=== PATIENT | female | born 1980 | race Caucasian/White ===

== ENCOUNTER 2018-01-07 08:49 | Emergency (ER) | payer OTHER ==
[~2018-01-07] VITALS: Ht 157.5 cm; Wt 81.7 kg
[~2018-01-07 08:49] MED LIST: ACETAZOLAMIDE250 M2 PO; CARISOPRODOL 3350 MG PO; DIAMOX PO; DIFLUCAN; FIORICET 50-321 EACH PO; FLEXERIL PO; GABAPENTIN100 MG PO; HYDROCODONE-AP1 EAC6 PO; HYDROCODONE-APA1 TA1 PO; IBUPROFEN 800800 M1 PO; LABETALOL 100100 MG PO; LEVSIN SL SUBLING; LISINOPRIL10 MG PO; MEDROLDOSEPACK PO; METHADONE HCL5 MG; METHADONE HCL5 MG PO; METHADOSE10 M1 PO; METHADOSE5 MG PO; MIRALAX255 GM PO; MIRENA; MOBIC7.5 MG PO; MS CONTIN 30 MG30 M1 PO; NABUMETONE 750750 M1 PO; NAPROSYN500 M1 PO; NAPROSYN500 MG PO; NEURONTIN 300M300 M2 PO; NEURONTIN 400M400 M2 PO; NORCO 5-325 TA1 EACH PO; PERCOCET 5-3251 EACH PO; PHENERGAN 25 MG25 MG PO; PREDNISONE 10 M10 M1 PO; PREDNISONE 20 M20 MG PO; RELAFEN500 MG PO; RELAFEN750 MG; RELAFEN750 MG PO; ROBAXIN 750 MG750 M1 PO; ROBAXIN500 MG PO; TIZANIDINE HCL4 MG PO; TRAMADOL; TRAMADOL 50 MG50 MG PO; TRINATE TABLET1 TAB PO; TYLENOL325 MG PO; ULTRAM 50MG TAB50 MG PO; ZANAFLEX4 M1; ZANAFLEX4 M1 PO; ZOFRAN4 MG PO
[2018-01-07] MEDS ORDERED: NORCO 5-325 TA1 EACH PO (09:36)
[2018-01-07] MEDS ORDERED: BACTRIM DS TAB1 EACH PO (09:36)
[2018-01-07 09:46] VITALS: BP 150/97
== END 2018-01-07 09:46 | disposition home or self-care (01) ==
LOC: M.ERS 08:49
DX: N76.4 Abscess of vulva (principal); G43.909 Migraine, unspecified, not intractable, without status migrainosus; M19.90 Unspecified osteoarthritis, unspecified site; M79.7 Fibromyalgia; I10 Essential (primary) hypertension; F17.210 Nicotine dependence, cigarettes, uncomplicated; Z98.890 Other specified postprocedural states; Z90.89 Acquired absence of other organs; Z90.711 Acquired absence of uterus with remaining cervical stump; Z91.040 Latex allergy status; Z88.5 Allergy status to narcotic agent; Z88.0 Allergy status to penicillin; Z88.7 Allergy status to serum and vaccine; Z88.6 Allergy status to analgesic agent

== ENCOUNTER 2018-01-15 13:12 | Emergency (ER) | payer OTHER ==
[~2018-01-15] VITALS: Ht 154.9 cm; Wt 81.7 kg
[~2018-01-15 13:12] MED LIST changes: +BACTRIM DS TAB1 EACH PO
[2018-01-15] MEDS ORDERED: ULTRAM 50MG TAB50 MG PO (14:11)
[2018-01-15 14:15] VITALS: BP 154/82
== END 2018-01-15 14:18 | disposition home or self-care (01) ==
LOC: M.ERS 13:12
DX: S00.33XA Contusion of nose, initial encounter (principal); W22.8XXA Striking against or struck by other objects, initial encounter; Y93.89 Activity, other specified; Y92.89 Other specified places as the place of occurrence of the external cause; Y99.8 Other external cause status; I10 Essential (primary) hypertension; M79.7 Fibromyalgia; M19.90 Unspecified osteoarthritis, unspecified site; G43.909 Migraine, unspecified, not intractable, without status migrainosus; I73.00 Raynaud's syndrome without gangrene; Z98.890 Other specified postprocedural states; Z90.710 Acquired absence of both cervix and uterus; F17.210 Nicotine dependence, cigarettes, uncomplicated; Z88.0 Allergy status to penicillin; Z88.5 Allergy status to narcotic agent; Z91.040 Latex allergy status

== ENCOUNTER 2018-02-11 13:09 | Emergency (ER) | payer OTHER ==
[~2018-02-11] VITALS: Ht 157.5 cm; Wt 77.1 kg
[2018-02-11] MEDS ORDERED: TRAZODONE HCL50 MG PO (13:31)
[2018-02-11] MEDS ORDERED: PRINIVIL20 MG PO (13:31)
[2018-02-11] MEDS ORDERED: TRAMADOL 50 MG50 MG PO (14:23)
[2018-02-11 14:39] VITALS: BP 169/111
== END 2018-02-11 14:40 | disposition home or self-care (01) ==
LOC: M.ERS 13:09
DX: S46.811A Strain of other muscles, fascia and tendons at shoulder and upper arm level, right arm, initial encounter (principal); G43.909 Migraine, unspecified, not intractable, without status migrainosus; M19.90 Unspecified osteoarthritis, unspecified site; M79.7 Fibromyalgia; I10 Essential (primary) hypertension; I73.00 Raynaud's syndrome without gangrene; Z90.711 Acquired absence of uterus with remaining cervical stump; F17.210 Nicotine dependence, cigarettes, uncomplicated; Z91.040 Latex allergy status; Z88.6 Allergy status to analgesic agent; Z88.0 Allergy status to penicillin; Z88.7 Allergy status to serum and vaccine; W10.8XXA Fall (on) (from) other stairs and steps, initial encounter; Y93.89 Activity, other specified; Y92.89 Other specified places as the place of occurrence of the external cause; Y99.8 Other external cause status

== ENCOUNTER 2018-02-25 12:56 | Emergency (ER) | payer OTHER ==
[~2018-02-25] VITALS: Ht 154.9 cm; Wt 77.1 kg
[~2018-02-25 12:56] MED LIST changes: +PRINIVIL20 MG PO; +TRAZODONE HCL50 MG PO
[2018-02-25] MEDS ORDERED: ZANAFLEX4 MG PO (13:04)
[2018-02-25] MEDS ORDERED: NORFLEX100 MG PO (13:50)
[2018-02-25] MEDS ORDERED: ULTRAM 50MG TAB50 MG PO (13:50)
[2018-02-25 13:58] VITALS: BP 164/108
== END 2018-02-25 13:59 | disposition home or self-care (01) ==
LOC: M.ERS 12:56
DX: S13.8XXA Sprain of joints and ligaments of other parts of neck, initial encounter (principal); G43.909 Migraine, unspecified, not intractable, without status migrainosus; M19.90 Unspecified osteoarthritis, unspecified site; I10 Essential (primary) hypertension; M79.7 Fibromyalgia; Z90.711 Acquired absence of uterus with remaining cervical stump; W10.8XXA Fall (on) (from) other stairs and steps, initial encounter; Y93.89 Activity, other specified; Y92.098 Other place in other non-institutional residence as the place of occurrence of the external cause; Y99.8 Other external cause status

== ENCOUNTER 2018-04-11 09:26 | Emergency (ER) | payer OTHER ==
[~2018-04-11] VITALS: Ht 154.9 cm; Wt 77.1 kg
[~2018-04-11 09:26] MED LIST changes: +NORFLEX100 MG PO; +ZANAFLEX4 MG PO
[2018-04-11 09:31] VITALS: BP 170/114
[2018-04-11] MEDS ORDERED: NAPROSYN500 MG PO (10:11)
== END 2018-04-11 10:19 | disposition home or self-care (01) ==
LOC: M.ERS 09:26
DX: M25.551 Pain in right hip (principal); I10 Essential (primary) hypertension; G43.909 Migraine, unspecified, not intractable, without status migrainosus; M19.90 Unspecified osteoarthritis, unspecified site; M79.7 Fibromyalgia; F17.210 Nicotine dependence, cigarettes, uncomplicated; Z88.0 Allergy status to penicillin; Z88.5 Allergy status to narcotic agent

== ENCOUNTER 2018-04-26 14:22 | Emergency (ER) | payer OTHER ==
[~2018-04-26] VITALS: Ht 154.9 cm; Wt 77.1 kg
[2018-04-26] MEDS ORDERED: IBUPROFEN 800800 M1 PO (14:38)
[2018-04-26] MEDS ORDERED: TYLENOL EXTRA500 MG PO (14:39)
[2018-04-26] MEDS ORDERED: NEURONTIN 400400 M1 PO (14:39)
[2018-04-26] MEDS ORDERED: KEFLEX500 M1 PO (14:43)
[2018-04-26] MEDS ORDERED: TRAMADOL 50 MG50 MG PO (14:43)
[2018-04-26 14:56] VITALS: BP 186/110
== END 2018-04-26 14:56 | disposition home or self-care (01) ==
LOC: M.ERS 14:22
DX: T23.021A Burn of unspecified degree of single right finger (nail) except thumb, initial encounter (principal); X08.8XXA Exposure to other specified smoke, fire and flames, initial encounter; Y93.89 Activity, other specified; Y92.89 Other specified places as the place of occurrence of the external cause; Y99.8 Other external cause status

== ENCOUNTER 2018-06-21 19:45 | Emergency (ER) | payer OTHER ==
[~2018-06-21] VITALS: Ht 154.9 cm; Wt 77.1 kg
[~2018-06-21 19:45] MED LIST changes: +KEFLEX500 M1 PO; +NEURONTIN 400400 M1 PO; +TYLENOL EXTRA500 MG PO
[2018-06-21 21:18] VITALS: BP 195/99
== END 2018-06-21 21:18 | disposition home or self-care (01) ==
LOC: M.ERS 19:45
DX: S80.02XA Contusion of left knee, initial encounter (principal); W22.09XA Striking against other stationary object, initial encounter; Y93.89 Activity, other specified; Y92.89 Other specified places as the place of occurrence of the external cause; Y99.8 Other external cause status; I10 Essential (primary) hypertension; G43.909 Migraine, unspecified, not intractable, without status migrainosus

== ENCOUNTER 2018-10-09 19:43 | Emergency (ER) | payer OTHER ==
[~2018-10-09] VITALS: Ht 154.9 cm; Wt 72.6 kg
[2018-10-09] MEDS ORDERED: IBUPROFEN 800800 M1 PO (20:17)
[2018-10-09] MEDS ORDERED: KEFLEX500 M1 PO (20:17)
[2018-10-09 20:44] VITALS: BP 216/123
== END 2018-10-09 20:45 | disposition home or self-care (01) ==
LOC: M.ERS 19:43
DX: T23.001A Burn of unspecified degree of right hand, unspecified site, initial encounter (principal); G43.909 Migraine, unspecified, not intractable, without status migrainosus; M19.90 Unspecified osteoarthritis, unspecified site; M79.7 Fibromyalgia; I10 Essential (primary) hypertension; Z90.710 Acquired absence of both cervix and uterus; F17.210 Nicotine dependence, cigarettes, uncomplicated; Z88.0 Allergy status to penicillin; Z88.5 Allergy status to narcotic agent; Z88.8 Allergy status to other drugs, medicaments and biological substances; Z91.040 Latex allergy status; X58.XXXA Exposure to other specified factors, initial encounter; Y93.G2 Activity, grilling and smoking food; Y92.89 Other specified places as the place of occurrence of the external cause; Y99.8 Other external cause status

== ENCOUNTER 2019-01-03 10:59 | Emergency (ER) | payer OTHER ==
[~2019-01-03] VITALS: Ht 154.9 cm; Wt 77.1 kg
[2019-01-03] MEDS ORDERED: NAPROSYN500 MG PO (11:10)
[2019-01-03] MEDS ORDERED: NORCO 5-325 TA1 EAC1 PO (11:51)
[2019-01-03 12:01] VITALS: BP 207/122
== END 2019-01-03 12:04 | disposition home or self-care (01) ==
LOC: M.ERS 10:59
DX: M25.551 Pain in right hip (principal); N80.9 Endometriosis, unspecified; G43.909 Migraine, unspecified, not intractable, without status migrainosus; M79.7 Fibromyalgia; M19.90 Unspecified osteoarthritis, unspecified site; F17.210 Nicotine dependence, cigarettes, uncomplicated; Z91.040 Latex allergy status; Z88.0 Allergy status to penicillin; Z88.5 Allergy status to narcotic agent; Z88.7 Allergy status to serum and vaccine; Z88.8 Allergy status to other drugs, medicaments and biological substances; Z88.6 Allergy status to analgesic agent; Z90.711 Acquired absence of uterus with remaining cervical stump; Z98.890 Other specified postprocedural states

== ENCOUNTER 2019-01-07 23:14 | Inpatient (IN) | payer OTHER ==
[~2019-01-07] VITALS: Ht 154.9 cm; Wt 72.7 kg
[~2019-01-07 23:14] MED LIST changes: +NORCO 5-325 TA1 EAC1 PO
[2019-01-07 23:26] VITALS: BP 233/140
[2019-01-07 23:42] LABS: URINE BILIRUBIN NEGATIVE (Negative); URINE BLOOD TRACE (Negative); URINE CLARITY CLEAR; URINE COLOR YELLOW; URINE GLUCOSE-RANDOM NEGATIVE (Negative); URINE KETONES NEGATIVE (Negative); URINE LEUKOCYTES-REFLEX NEGATIVE (Negative); URINE NITRITE-REFLEX NEGATIVE (Negative); URINE PROTEIN 3+ (Negative); URINE SPECIFIC GRAVITY 1.025 (1.005-1.030); URINE UROBILINOGEN 0.2 E.U./dl (0.2-1.0)
[2019-01-07 23:46] LABS: BACTERIA-REFLEX >30 Many /HPF (None Seen); MUCUS >6 Heavy strn/LPF (None Seen); SQUAMOUS 4-10 Moderate /LPF (0-3); URINE RBC 3-10 Few /HPF (0-2); URINE WBC-REFLEX 6-15 Few /HPF (0-5); WBC CLUMPS Few (None Seen)
[2019-01-07 23:47] LABS: COARSE GRANULAR CASTS 0-3 Few /LPF (None Seen); CRYSTALS None Seen /LPF (None Seen); FINE GRANULAR CASTS 0-3 Few /LPF (None Seen); HYALINE CASTS 0-3 Few /LPF (None Seen)
[2019-01-07 23:50] LABS: ABSOLUTE BASOPHILS 0.1 thou/uL (0.0-0.2); ABSOLUTE EOSINOPHILS 0.2 thou/uL (0.0-0.7); ABSOLUTE LYMPHOCYTES 2.4 thou/uL (0.8-5.3); ABSOLUTE MONOCYTES 0.7 thou/uL (0.0-1.2); ABSOLUTE NEUTROPHILS 7.5 thou/uL (1.6-8.1); BASOPHILS 0.5 %; EOSINOPHILS 1.5 %; HEMATOCRIT 46.5 % (37.0-47.0); LYMPHOCYTES 22.1 %; MCHC 34.4 g/dL (28.0-37.0); MCV 95.9 fL (80.0-100.0); MONOCYTES 6.4 %; MPV 7.5 fl. (7.2-11.1); NUCLEATED RBCS 0 /100WBC; PLATELET COUNT* 287 thou/uL (150-400); POLYS 69.5 %; RBC 4.85 mil/uL (4.20-5.00); WBC 10.7 thou/uL (4.0-11.0)
[2019-01-07 23:56] LABS: ANION GAP 11 mmol/L (7-16); BUN 14 mg/dL (7-18); CALCIUM 9.2 mg/dL (8.5-10.1); CHLORIDE 98 mmol/L (98-107); CO2 29 mmol/L (21-32); CREATININE 1.2 mg/dL (0.6-1.3); GLUCOSE 92 mg/dL (70-99); SODIUM 138 mmol/L (136-145)
[2019-01-07 23:58] LABS: POTASSIUM 2.6 mmol/L (3.5-5.1)
[2019-01-08 00:11] LABS: ALBUMIN 4.4 g/dL (3.4-5.0); ALKALINE PHOSPHATASE 121 U/L (46-116); NT-PRO BRAIN NAT PEPTIDE 2009 pg/mL (<300); SGOT 23 U/L (15-37); SGPT 28 U/L (30-65); TOTAL BILIRUBIN 0.4 mg/dL (<0.1-1.0); TOTAL PROTEIN 8.9 g/dL (6.4-8.2); TROPONIN-I LEVEL <0.06 ng/mL (<0.06)
[2019-01-08 02:35] VITALS: BP 210/96
[2019-01-08 03:00] VITALS: BP 163/96
--- NOTE | 2019-01-08 05:47 | NUR ---
RECEIVED PT FROM ED PER CART ACCOMPANIED BY BRITNEY LEMOS, PT IS AWAKE AND ORIENTED X4. WARDROBE SPECIALIST PLACED-TRACING SR. ADMISSION ASSESSMENT AND NIH DONE CHARTED. ELECTROLYTE (K+) REPLACEMENT IN PROGRESS. PT ADVISED ON DIET AND THE USE OF CALL LIGHT. PT PROVIDED ORIENTATION ON ON ROOM SET UP. HIGH FALL PRECAUTIONS IN PLACE. HOURLY ROUNDING DONE FOR PT SAFETY.
[2019-01-08 07:50] VITALS: BP 160/88
--- NOTE | 2019-01-08 10:20 | NUR ---
MET WITH PT TO DISCUSS HOME SITUATION/DC PLANNING. PT LIVES WITH SPOUSE AND CHILDREN. SHE WORKS AT [employer]. PT IS INDEPENDENT, USES NO EQUIPMENT. IS UNINSURED AND STATES FOLLOWS WITH A DR AT [facility], COULDN'T REMEMBER HER NAME. PT ID'D NO DC NEEDS AT THIS TIME. WILL FOLLOW. COMMUNITY RESOURCES GIVEN.
--- NOTE | 2019-01-08 11:11 | EKG ---
[place] [address] ELECTROCARDIOGRAM REPORT Name: ADELA MCCLENDON Room: [place] [address] ADM IN [facility].#: [id number] Admission: 01/08/19 Attend Phys: Roma Enciso MD Discharge: Date of : 82 Report #: [id number] THIS REPORT FOR: //name// [facility] ED Test Date: 2019-01-07 Test Time: 23:36:54 Pat Name: ADELA MCCLENDON Department: Room: [facility] Gender: F Equipment Validation Specialist: barry : 1980 Requested By: Naida Foreman Order Number: [id number] MD: Otto Vaughn Measurements Intervals [place] Rate: 78 P: 63 NV: 142 QRS: 11 QRSD: 84 T: 43 QT: 400 QTc: 456 Interpretive Statements Sinus rhythm LAE, consider biatrial enlargement Probable left ventricular hypertrophy ST elev, probable normal early repol pattern Baseline wander in lead(s) V2 No previous ECG available for comparison Electronically Signed On 01-08-2019 11:11:09 CDT by Otto Vaughn [email or web address] <ELECTRONICALLY SIGNED> By: Otto Vaughn MD, FACC 01/08/19 1111 [id number] Otto Vaughn MD, [facility] /EPI
--- NOTE | 2019-01-08 16:33 | NUR ---
ASSESSMENT COMPLETE. MRI RESULTED AND READ BACK TO NEUROLOGIST AT 1620. PROVIDER STATED HE WILL PUT IN ORDERS. PATIENT PASSED BEDSIDE SWOLLOW WITH RN AT 1630. CARB CONTROLLED DIET ORDER. SEE NIH ASSESSMENT. PT REPORTS HEADACHE, VSS, NSR ON TELE MONITOR. PT IS FALL RISK, BED ALARM ON.
[2019-01-08 17:51] VITALS: BP 120/69
[2019-01-08 18:14] VITALS: BP 139/95
[2019-01-08 20:00] VITALS: BP 147/89
--- NOTE | 2019-01-08 20:00 | NUR ---
RECEIVED REPORT AND ASSUMED CARE OF PT, ASSESSMENT COMPLETED. PT C/O BRADFORD CASTRO. NIH COMPLETED. WITH SCORE OF 7 DUE TO LT ARM AND LEG WEAKNESS. TELEMETRY ON SHOWING SR. WILL CONT TO MONITOR AND ASSIST NEEDED.
[2019-01-09] VITALS: BP 152/80
[2019-01-09 04:00] VITALS: BP 149/83
[2019-01-09 04:45] LABS: ALKALINE PHOSPHATASE 92 U/L (46-116); ANION GAP 7 mmol/L (7-16); BUN 20 mg/dL (7-18); CALCIUM 8.7 mg/dL (8.5-10.1); CHLORIDE 108 mmol/L (98-107); CHOLESTEROL 286 mg/dL (<200); CO2 27 mmol/L (21-32); CREATININE 1.1 mg/dL (0.6-1.3); GLUCOSE 83 mg/dL (70-99); HDL CHOLESTEROL 27 mg/dL (>40); LDL CHOLESTEROL 232 mg/dL (<100); POTASSIUM 4.2 mmol/L (3.5-5.1); SGOT 18 U/L (15-37); SGPT 23 U/L (30-65); SODIUM 142 mmol/L (136-145); TC:HDL 10.6 Ratio (Not establshd); TOTAL BILIRUBIN 0.2 mg/dL (<0.1-1.0); TOTAL PROTEIN 6.6 g/dL (6.4-8.2); TRIGLYCERIDE 137 mg/dL (<150); VLDL 27 mg/dL (<40)
[2019-01-09 04:54] LABS: SERUM ASSESSMENT Clear
--- NOTE | 2019-01-09 05:50 | NUR ---
SLEPT ALL NIGHT. ASSISTED TO BR AND BACK WITH WALKER. PT DRAGGING LT LEG, TOES POINTING DOWNWARD. C/O PAIN INTO LT CALF, EXPLAINED PROB DUE TO USING DIFFERENT MUSCLES THAT SHE WAS NOT USE TO. CONTACTED AND ORDER RECEIVED FOR PAIN MED BUT PT RETURNED TO SLEEP BEFORE COULD GIVE. ASSESSMENT UNCHANGED. TELEMETRY CONT TO SHOW SR. HS GOALS OF REST AND SAFETY ACHIEVED. HOURLY ROUNDING OBSERVED.
--- NOTE | 2019-01-09 07:25 | NUR ---
CHANGE OF SHIFT, BEDSIDE REPORT GIVEN PATIENT SEEN AT BEDSIDE, IN BED WATCHING TV ASSUMED PATIENT CARE
[2019-01-09 08:00] VITALS: BP 160/91
[2019-01-09 12:00] VITALS: BP 121/74
[2019-01-09 15:57] VITALS: BP 160/94
[2019-01-09 19:40] VITALS: BP 142/90
[2019-01-10 00:23] VITALS: BP 149/90
[2019-01-10 04:08] VITALS: BP 121/64
--- NOTE | 2019-01-10 05:37 | NUR ---
PT SLEPT ON AND OFF THIS SHIFT. ASSESSMENT DOCUMENTED. MEDS GIVEN PER E-SEP. IV PATENT. PAIN MEDS GIVEN PER E-MAR WITH MINIMAL RELIEF. PT SHOWERED TO ATTEMPT TO RELIEF PAIN. SWELLING NOTED IN LLE. DR NOTIFIED, ORDERS RECIEVED FOR LOWER EXTREMETY ULTRASOUND. NIH DOCUMENTED. TELE MONITOR READING SR. WILL CONTINUE WITH PLAN OF CARE.
--- NOTE | 2019-01-10 07:15 | NUR ---
CHANGE OF SHIFT, BEDSIDE REPORT GIVEN PATIENT SEEN AT BEDSIDE, IN BED RESTING ASSUMED PATIENT CARE
[2019-01-10 07:30] VITALS: BP 155/88
[2019-01-10 12:09] VITALS: BP 161/82
[2019-01-10 16:30] VITALS: BP 147/67
[2019-01-10 20:45] VITALS: BP 157/95
[2019-01-11] VITALS: BP 164/92
[2019-01-11 04:00] VITALS: BP 146/88
--- NOTE | 2019-01-11 06:55 | NUR ---
NO ACUTE CHANGES OVERNIGHT. PATIENT SLEPT OFF AND ON. ASSESSMENT CHARTED. MEDS GIVEN PER EMAR. PATIENT REFUSING ORAL MEDICATION STATING "IT WILL NOT DO ANYTHING. I TAKE 3,000 MG OF IBUPROFEN AT HOME." EDUCATION GIVEN. WILL CONTINUE TO MONITOR PLAN OF CARE.
--- NOTE | 2019-01-11 09:00 | NUR ---
ASSUMED CARE AFTER REPORT. A&OX4. ABLE TO COMMUNICATE NEEDS TO STAFF. WOODWORKING MACHINE SETTER IN PLACE, SR. O2 SATS 97% RA. PATIENT USING FACIAL GRIMACE AND POSITION TO INDICATE PAIN, STATES PAIN LEVEL 9/10 PER NUMERIC PAIN SCALE. REVIEWED PLAN FOR PAIN MANAGEMENT. PRN PAIN MED GIVEN PER MAR. USING WALKER TO TRANSFER AND AMBULATE WITH SUPERVISION BY STAFF. APPROPRIATE USE OF CALL LIGHT. HOURLY ROUNDING FOR SAFETY AND PATIENT NEEDS.
--- NOTE | 2019-01-11 11:15 | NUR ---
COMMAND AND CONTROL SPECIALIST: MET WITH PATIENT AND DISCUSSED STROKE PROGRAM, RISK FACTORS, SECONDARY PREVENTION. WILL CONTINUE TO FOLLOW, PT CONCERNED REGARDING PAIN IN LLE.
[2019-01-11 11:30] VITALS: BP 130/91
--- NOTE | 2019-01-11 11:43 | NUR ---
CONTINUE TO FOLLOW, PT DX WITH STROKE, HAS REHAB CONSULT NOW. MET WITH PT AGAIN, SHE NOW STATES SHE LIVES ALONE IN [place] BUT PLANS TO GO TO [place]. CONFIRMED SHE DOESN'T HAVE INSURANCE. HAVE AS[facility]ED [facility] TO SEE PT TO SCREEN FOR ELIGIBILITY.
[2019-01-11 11:55] VITALS: BP 160/97
--- NOTE | 2019-01-11 15:38 | 2DMMODE ---
[place] [address] 2 D/M-MODE ECHOCARDIOGRAM Name: HAKANADELAKEY YUENEE Room: [place] [address] ADM IN [facility]#: [id number] Admission: 01/08/19 Attend Phys: Roma Enciso MD Discharge: Date of : 82 Date of Service: 01/11/19 1537 Report #: [id number] THIS REPORT FOR: //name// APPROVED REPORT Study performed: 01/11/2019 13:35:06 EXAM: Comprehensive 2D, Doppler, and color-flow Echocardiogram Patient Location: In-Patient Room #: [facility] Status: routine BSA: 1.73 HR: 68 bpm BP: 146/88 mmHg Rhythm: NSR Other Information Study Quality: Excellent Indications CVA/TIA Echo Enhancing Agent Indication: Rule out Shunt Agent(s) / Amount(s) Used: Agitated Saline 10 cc 2D Dimensions IVSd: 11.44 (7-11mm) LVOT Diam: 20.05 (18-24mm) LVDd: 45.95 mm PWd: 9.88 (7-11mm) Ascending Ao: 32.56 (22-36mm) LVDs: 30.01 (25-40mm) Aortic Root: 29.62 mm Volumes Left Atrial Volume (Systole) LA ESV Index: 32.90 mL/m2 Aortic Valve AoV Peak Sen.: 1.61 m/s AO Peak Gr.: 10.37 mmHg LVOT Max P.38 mmHg AO Mean Gr.: 5.85 mmHg LVOT Mean P.28 mmHg LVOT Max V: 1.05 m/s AO V2 VTI: 30.06 cm LVOT Mean V: 0.70 m/s LILIANA (VTI): 2.16 cm2 LVOT V1 VTI: 20.55 [place] [address] 2 D/M-MODE ECHOCARDIOGRAM Name: ADELA MCCLENDON Room: [place] [address] ADM IN ..#: [id number] Admission: 01/08/19 Attend Phys: Roma Enciso MD Discharge: Date of : 82 Date of Service: 01/11/19 1537 Report #: [id number] Mitral Valve E/A Ratio: 1.13 MV Decel. Time: 223.77 ms MV E Max Sen.: 0.94 m/s MV PHT: 64.89 ms MVA (PHT): 3.39 cm2 TDI E/Lateral E': 8.55 E/Medial E': 9.40 Medial E' Sen.: 0.10 m/s Lateral E' Sen.: 0.11 m/s Pulmonary Valve PV Peak Sen.: 1.02 m/s PV Peak Gr.: 4.17 mmHg Left Ventricle The left ventricle is normal size. There is normal LV segmental wall motion. There is normal left ventricular wall thickness. Left ventricular systolic function is normal. The left ventricular ejection fraction is within the normal range. LVEF is 60-65%. The left ventricular diastolic function is normal. Right Ventricle The right ventricle is normal size. The right ventricular systolic function is normal. Atria Left atrium is mildly dilated. Interatrial septum is intact without evidence of ASD or PFO. The right atrium size is normal. Aortic Valve The aortic valve is normal in structure. No aortic regurgitation is present. There is no aortic valvular stenosis. Mitral Valve The mitral valve is normal in structure. Trace mitral regurgitation. No evidence of mitral valve stenosis. Tricuspid Valve The tricuspid valve is normal in structure. There is no tricuspid valve regurgitation noted. Pulmonic Valve The pulmonary valve is normal in structure. There is no pulmonic [place] [address] 2 D/M-MODE ECHOCARDIOGRAM Name: ADELA MCCLENDON ONEIL Room: [address] IN ..#: [id number] Admission: 01/08/19 Attend Phys: Roma Enciso MD Discharge: Date of : 82 Date of Service: 01/11/19 1537 Report #: [id number] Great Vessels The aortic root is normal in size. IVC is normal in size and collapses >50% with inspiration. Pericardium There is no pericardial effusion. <Conclusion> LVEF is 60-65%. Left atrium is mildly dilated. Interatrial septum is intact without evidence of ASD or PFO. <ELECTRONICALLY SIGNED> By: Otto Vaughn MD, LOCATED [facility]IN [facility] 01/11/19 1537 1537 1537 Otto Vaughn MD, FAC /INF
[2019-01-11 15:48] VITALS: BP 163/109
--- NOTE | 2019-01-11 16:45 | NUR ---
I have reviewed the documentation by GABRIELE JARRETT from TODAY to 01/11/19 and I concur with it. KATYA BLISS
--- NOTE | 2019-01-11 18:30 | NUR ---
PATIENT SEEMS RELAXED AFTER FAMILY VISITED. PATIENT STATES "MY BROUGHT MY KIDS TO SEE ME." PATIENT STATES HER PAIN LEVEL IS 7/10 PER NUMERIC PAIN SCALE. THORACIC AND LUMBAR MRI COMPLETED. ECHO COMPLETE. PATIENT ROMÁN WELL. DISCUSSED PAIN MANAGEMENT WITH PATIENT WHO IS MORE RELAXED WHEN DISCUSSING THIS TOPIC NOW. PATIENT TAKING SCHEDULED ANALGESICS ORDERED. HOURLY ROUNDING COMPLETED FOR SAFETY AND PATIENT NEEDS.
[2019-01-11 20:00] VITALS: BP 179/86
[2019-01-12] VITALS: BP 187/90
[2019-01-12 04:00] VITALS: BP 142/78
[2019-01-12 07:53] VITALS: BP 112/65
--- NOTE | 2019-01-12 08:11 | NUR ---
PT WAS SCREENED BY RosalindARC, NOT ELIGIBLE FOR ANY PROGRAMS SO IS NOT MEDICAID PENDING
--- NOTE | 2019-01-12 08:45 | NUR ---
ASSUMED CARE AFTER REPORT. [employer], SLEEPING AT FIRST ENCOUNTER. ABLE TO COMMUNICATE NEEDS TO STAFF. 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 O2 SATS 97% RA. UP WITH WALKER AND ASSIST OF ONE. PRN TRAMADOL GIVEN FOR PAIN. C/O PAIN IN L LEG AND BACK OF NECK. CALL LIGHT WITHIN REACH. HOURLY ROUNDING FOR SAFETY AND PATIENT NEEDS.
[2019-01-12 12:14] VITALS: BP 170/71
[2019-01-12 15:40] VITALS: BP 165/87
[2019-01-12 19:28] LABS: URINE BILIRUBIN NEGATIVE (Negative); URINE BLOOD NEGATIVE (Negative); URINE CLARITY CLEAR; URINE COLOR YELLOW; URINE GLUCOSE-RANDOM NEGATIVE (Negative); URINE KETONES NEGATIVE (Negative); URINE LEUKOCYTES-REFLEX NEGATIVE (Negative); URINE NITRITE-REFLEX NEGATIVE (Negative); URINE PROTEIN NEGATIVE (Negative); URINE SPECIFIC GRAVITY <= 1.005 (1.005-1.030); URINE UROBILINOGEN 0.2 E.U./dl (0.2-1.0)
[2019-01-12 19:37] LABS: AMP/METHAMP Negative (Negative); BARBITURATES Negative (Negative); BENZODIAZEPINES Negative (Negative); COCAINE Negative (Negative); METHADONE Negative (Negative); OPIATES Negative (Negative); PCP Negative (Negative); THC Negative (Negative)
[2019-01-12 20:00] VITALS: BP 158/103
[2019-01-13] VITALS (7 sets, daily range): BP systolic 134–169; BP diastolic 79–103
--- NOTE | 2019-01-13 07:36 | NUR ---
PT REQUESTED PRN PAIN MEDICINE FOR LEFT LEG X2. REPORTED MINIMAL EFFECTIVENESS BUT WAS ABLE TO FALL ASLEEP AFTER BEDTIME DOSE AND FALL BACK ASLEEP AFTER AM DOSE. NO OTHER CONCERNS REPORTED. CALL LIGHT IN REACH. HOURLY ROUNDING FOR SAFETY.
[2019-01-13] MEDS ORDERED: ASPIRIN EC81 M1 PO (12:01)
[2019-01-13] MEDS ORDERED: VERAPAMIL E.R240 M1 PO (12:03)
[2019-01-13] MEDS ORDERED: LIPITOR 20 MG T20 M1 PO (12:04)
[2019-01-13] MEDS ORDERED: TRAMADOL 50 MG50 MG PO (12:05)
[2019-01-13] MEDS ORDERED: PLAVIX 75 MG TA75 M1 PO (12:05)
--- NOTE | 2019-01-13 13:27 | NUR ---
SPOKE WITH CHAD/[facility], THEY ARE WAITING ON A PT TO DISCHARGE AND THEN CAN ACCEPT PT. NOT SURE OF TIMING, SHE WILL CALL CM BACK UPDATED PT AND NURSE
--- NOTE | 2019-01-13 14:55 | NUR ---
PT A/O, NIH 2. TELE TRACKING SR AND ALL VSS ON ROOM AIR. DENIES CP, SOA. DOES HAVE LEFT LEG PAIN AND HEADACHE-MEDICATED PER EMAR. EDUCATED ON SAFETY AND PLAN OF CARE. PLEASE SEE ASSESSMENT FOR ADDITIONAL INFORMATION. WILL CONT TO MONITOR
[2019-01-14] VITALS: BP 147/76
[2019-01-14 04:00] VITALS: BP 132/84
[2019-01-14 08:00] VITALS: BP 125/87
[2019-01-14 08:43] VITALS: BP 125/87
--- NOTE | 2019-01-14 10:35 | NUR ---
PAN HELPER INFORMED THAT THE PATIENT HAS BEEN DISCHARGED AND ACCEPTED TO [facility]. D/C SPIKE MACHINE FEEDER SPOKE TO THE PATIENT TO DISCUSS DISCHARGE PLANNING AND TRANSPORT, AND THE PATIENT INFORMS THAT SHE NEEDS TO HAVE HER FAMILY TRANSPORT HER SO THAT SHE MAY 'P[place] DEALER HER PAYCHECK'. D/C SPIKE MACHINE FEEDER INFORMED THE PHYSICIAN AND CHAD WITH ADMISSIONS AT [facility] OF THIS AND BOTH ARE IN AGREEMENT. D/C SPIKE MACHINE FEEDER INFORMED THE PATIENT OF THE IMPORTANCE OF HER NOT MAKING ANY OTHER STOPS WHATSOEVER AND THAT SHE IS NOT ALLOWED TO EXIT THE VEHICLE FOR ANY REASON, AND MUST GO DIRECTLY TO [facility] AFTER SHE GETS HER PAYCHECK. PATIENT IN AGREEMENT AND STATES THAT SHE FULLY UNDERSTANDS. PATIENT INFORMS THAT HER FAMILY WILL ARRIVE AT THE [facility] TO PROVIDE TRANSPORT BETWEEN 1100 AND 1130. D/C SPIKE MACHINE FEEDER INFORMED CHAD OF THIS AND SHE INFORMS THAT SHE EXPECTS TO SEE THE PATIENT AT THE FACILITY BETWEEN 1230 AND 1300. CHART COPIED AND EMTALA FORM COMPLETED. D/C SPIKE MACHINE FEEDER INFORMED THE RN IN-CHARGE OF THE PATIENT OF THE PATIENT'S TIME OF TRANSPORT AND WHERE TO CALL REPORT. CM WILL REMAIN AVAILABLE TO ASSIST AND FOLLOW NEEDED. [facility] PHONE: [phone] FAX: [phone]
--- NOTE | 2019-01-14 11:10 | NUR ---
DISCHARGE NOTE - [facility] REPORT CALLED [phone] AND SPOKE WITH CANELO KEMP. NO QUESTIONS. ALL BELONGINGS SENT WITH PT. CHART COPIED AND SENT WITH PT. IV REMOVED.
== END 2019-01-14 11:10 | DRG 65 ==
LOC: M.ERS 23:14 → M.TBA-ER 01-08 01:35 → M.2W 01-08 01:35
PROVIDERS: Emergency Medicine; Internal Medicine; Psychiatry & Neurology Neuromuscular Medicine; ADMIT Family Medicine
DX: I63.9 Cerebral infarction, unspecified (principal); I16.9 Hypertensive crisis, unspecified; M19.90 Unspecified osteoarthritis, unspecified site; F17.210 Nicotine dependence, cigarettes, uncomplicated; I16.0 Hypertensive urgency; E87.6 Hypokalemia; E78.5 Hyperlipidemia, unspecified; G43.909 Migraine, unspecified, not intractable, without status migrainosus; I10 Essential (primary) hypertension; Z90.710 Acquired absence of both cervix and uterus; Z88.8 Allergy status to other drugs, medicaments and biological substances; Z88.6 Allergy status to analgesic agent; Z91.040 Latex allergy status; Z83.3 Family history of diabetes mellitus; Z71.6 Tobacco abuse counseling; Z79.899 Other long term (current) drug therapy

== ENCOUNTER 2019-03-01 21:05 | Emergency (ER) | payer OTHER ==
[~2019-03-01] VITALS: Ht 154.9 cm; Wt 72.6 kg
[~2019-03-01 21:05] MED LIST changes: +ASPIRIN EC81 M1 PO; +LIPITOR 20 MG T20 M1 PO; +PLAVIX 75 MG TA75 M1 PO; +VERAPAMIL E.R240 M1 PO
[2019-03-01] MEDS ORDERED: TRAMADOL 50 MG50 MG PO (21:42)
[2019-03-01 22:19] VITALS: BP 114/83
== END 2019-03-01 22:21 | disposition home or self-care (01) ==
LOC: M.ERS 21:05
DX: M79.605 Pain in left leg (principal); I10 Essential (primary) hypertension; M79.7 Fibromyalgia; G43.909 Migraine, unspecified, not intractable, without status migrainosus; N80.9 Endometriosis, unspecified; M19.90 Unspecified osteoarthritis, unspecified site; F17.210 Nicotine dependence, cigarettes, uncomplicated; Z91.040 Latex allergy status; Z88.5 Allergy status to narcotic agent; Z88.0 Allergy status to penicillin; Z88.7 Allergy status to serum and vaccine; Z88.6 Allergy status to analgesic agent; Z88.8 Allergy status to other drugs, medicaments and biological substances; Z98.890 Other specified postprocedural states; Z86.73 Personal history of transient ischemic attack (TIA), and cerebral infarction without residual deficits; Z90.711 Acquired absence of uterus with remaining cervical stump

== ENCOUNTER 2019-04-21 11:21 | Emergency (ER) | payer OTHER, MEDICAID ==
[~2019-04-21] VITALS: Ht 154.9 cm; Wt 77.1 kg
[2019-04-21] MEDS ORDERED: CIPROFLOXIN HC2.5 M1 OPHTHALMIC (11:56)
[2019-04-21 12:01] VITALS: BP 157/96
== END 2019-04-21 12:00 | disposition home or self-care (01) ==
LOC: M.ERS 11:21
DX: H10.9 Unspecified conjunctivitis (principal); M79.7 Fibromyalgia; N80.9 Endometriosis, unspecified; G43.909 Migraine, unspecified, not intractable, without status migrainosus; M19.90 Unspecified osteoarthritis, unspecified site; F17.210 Nicotine dependence, cigarettes, uncomplicated; Z91.040 Latex allergy status; Z88.5 Allergy status to narcotic agent; Z88.0 Allergy status to penicillin; Z88.7 Allergy status to serum and vaccine; Z88.8 Allergy status to other drugs, medicaments and biological substances; Z98.890 Other specified postprocedural states; Z90.711 Acquired absence of uterus with remaining cervical stump

== ENCOUNTER 2019-05-13 16:53 | Emergency (ER) | payer OTHER, MEDICAID ==
[~2019-05-13] VITALS: Ht 154.9 cm; Wt 77.1 kg
[~2019-05-13 16:53] MED LIST changes: +CIPROFLOXIN HC2.5 M1 OPHTHALMIC
[2019-05-13] MEDS ORDERED: NORVASC 2.5 MG2.5 M1 PO (17:05)
[2019-05-13] MEDS ORDERED: NORCO 5-325 TA1 EAC1 PO (17:49)
[2019-05-13 19:00] VITALS: BP 158/79
== END 2019-05-13 19:01 | disposition home or self-care (01) ==
LOC: M.ERS 16:53
DX: S63.8X2A Sprain of other part of left wrist and hand, initial encounter (principal); N80.9 Endometriosis, unspecified; M19.90 Unspecified osteoarthritis, unspecified site; M79.7 Fibromyalgia; F17.210 Nicotine dependence, cigarettes, uncomplicated; Z90.711 Acquired absence of uterus with remaining cervical stump; Z86.73 Personal history of transient ischemic attack (TIA), and cerebral infarction without residual deficits; Z91.040 Latex allergy status; Z88.5 Allergy status to narcotic agent; Z88.0 Allergy status to penicillin; Z88.7 Allergy status to serum and vaccine; Z88.8 Allergy status to other drugs, medicaments and biological substances; W18.39XA Other fall on same level, initial encounter; Y93.89 Activity, other specified; Y92.89 Other specified places as the place of occurrence of the external cause; Y99.8 Other external cause status

== ENCOUNTER 2019-05-25 20:14 | Emergency (ER) | payer OTHER, MEDICAID ==
[~2019-05-25] VITALS: Ht 157.5 cm; Wt 77.1 kg
[~2019-05-25 20:14] MED LIST changes: +NORVASC 2.5 MG2.5 M1 PO
[2019-05-25] MEDS ORDERED: CYMBALTA60 MG PO (20:23)
[2019-05-25 20:47] LABS: URINE BILIRUBIN NEGATIVE (Negative); URINE BLOOD NEGATIVE (Negative); URINE CLARITY CLEAR; URINE COLOR YELLOW; URINE GLUCOSE-RANDOM NEGATIVE (Negative); URINE KETONES NEGATIVE (Negative); URINE LEUKOCYTES-REFLEX NEGATIVE (Negative); URINE NITRITE-REFLEX NEGATIVE (Negative); URINE PROTEIN NEGATIVE (Negative); URINE SPECIFIC GRAVITY 1.025 (1.005-1.030); URINE UROBILINOGEN 0.2 E.U./dl (0.2-1.0)
[2019-05-25 21:00] LABS: ABSOLUTE BASOPHILS 0.1 thou/uL (0.0-0.2); ABSOLUTE EOSINOPHILS 0.1 thou/uL (0.0-0.7); ABSOLUTE LYMPHOCYTES 2.7 thou/uL (0.8-5.3); ABSOLUTE MONOCYTES 0.5 thou/uL (0.0-1.2); ABSOLUTE NEUTROPHILS 6.5 thou/uL (1.6-8.1); EOSINOPHILS 1.4 %; HEMATOCRIT 41.9 % (37.0-47.0); HEMOGLOBIN 14.4 gm/dL (12.0-15.0); LYMPHOCYTES 27.5 %; MCH 33.7 pg (26.0-34.0); MCHC 34.3 g/dL (28.0-37.0); MCV 98.1 fL (80.0-100.0); MONOCYTES 5.1 %; MPV 7.2 fl. (7.2-11.1); NUCLEATED RBCS 0 /100WBC; PLATELET COUNT* 322 thou/uL (150-400); RBC 4.27 mil/uL (4.20-5.00); RDW-CV 13.3 % (10.5-14.5)
[2019-05-25 21:09] LABS: CREATININE 1.5 mg/dL (0.6-1.3); POTASSIUM 4.2 mmol/L (3.5-5.1)
[2019-05-25 21:14] LABS: ALBUMIN 3.3 g/dL (3.4-5.0); TOTAL BILIRUBIN 0.2 mg/dL (<0.1-1.0); TOTAL PROTEIN 7.4 g/dL (6.4-8.2)
[2019-05-25 23:05] VITALS: BP 153/75
== END 2019-05-25 23:06 | disposition home or self-care (01) ==
LOC: M.ERS 20:14
PROVIDERS: Personal Emergency Response Attendant
DX: K59.00 Constipation, unspecified (principal); F17.210 Nicotine dependence, cigarettes, uncomplicated; Z91.040 Latex allergy status; Z88.5 Allergy status to narcotic agent; Z88.0 Allergy status to penicillin; Z88.7 Allergy status to serum and vaccine; Z88.6 Allergy status to analgesic agent

== ENCOUNTER 2019-06-29 20:56 | Emergency (ER) | payer OTHER, MEDICAID ==
[~2019-06-29] VITALS: Ht 154.9 cm; Wt 77.1 kg
[~2019-06-29 20:56] MED LIST changes: +CYMBALTA60 MG PO
[2019-06-29 21:03] VITALS: BP 162/106
[2019-06-29] MEDS ORDERED: DOXYCYCLINE 10100 MG PO (21:39)
[2019-06-29] MEDS ORDERED: NORCO 5-325 TA1 EAC1 PO (21:39)
== END 2019-06-29 21:51 | disposition home or self-care (01) ==
LOC: M.ERS 20:56
DX: N76.2 Acute vulvitis (principal); L08.9 Local infection of the skin and subcutaneous tissue, unspecified; I10 Essential (primary) hypertension; G43.909 Migraine, unspecified, not intractable, without status migrainosus; M79.7 Fibromyalgia; M19.90 Unspecified osteoarthritis, unspecified site; F17.210 Nicotine dependence, cigarettes, uncomplicated; Z90.89 Acquired absence of other organs; Z98.890 Other specified postprocedural states; Z88.5 Allergy status to narcotic agent; Z88.6 Allergy status to analgesic agent; Z88.0 Allergy status to penicillin

== ENCOUNTER 2019-07-30 22:16 | Emergency (ER) | payer OTHER, MEDICAID ==
[~2019-07-30] VITALS: Ht 165.1 cm; Wt 86.2 kg
[~2019-07-30 22:16] MED LIST changes: +DOXYCYCLINE 10100 MG PO
[2019-07-31] MEDS ORDERED: HYDROCODON-ACE1 EAC8 PO (00:43)
[2019-07-31] MEDS ORDERED: FLEXERIL PO (00:43)
[2019-07-31 00:52] VITALS: BP 164/110
== END 2019-07-31 00:52 | disposition home or self-care (01) ==
LOC: M.ERS 22:16
DX: M25.551 Pain in right hip (principal); G43.909 Migraine, unspecified, not intractable, without status migrainosus; N80.9 Endometriosis, unspecified; M19.90 Unspecified osteoarthritis, unspecified site; I10 Essential (primary) hypertension; F17.210 Nicotine dependence, cigarettes, uncomplicated; Z91.040 Latex allergy status; Z88.0 Allergy status to penicillin; Z88.5 Allergy status to narcotic agent; Z88.7 Allergy status to serum and vaccine; Z88.6 Allergy status to analgesic agent; Z98.890 Other specified postprocedural states; Z90.711 Acquired absence of uterus with remaining cervical stump; Z86.73 Personal history of transient ischemic attack (TIA), and cerebral infarction without residual deficits

== ENCOUNTER 2019-09-18 21:49 | Emergency (ER) | payer OTHER, MEDICAID ==
[~2019-09-18] VITALS: Ht 154.9 cm; Wt 86.2 kg
[~2019-09-18 21:49] MED LIST changes: +HYDROCODON-ACE1 EAC8 PO
[2019-09-18] MEDS ORDERED: BACLOFEN 10MG T10 MG PO (22:08)
[2019-09-18] MEDS ORDERED: ULTRAM 50MG TAB50 MG PO (22:55)
[2019-09-18] MEDS ORDERED: MEDROLDOSEPACK PO (22:55)
[2019-09-18 23:19] VITALS: BP 118/75
== END 2019-09-18 23:19 | disposition home or self-care (01) ==
LOC: M.ERS 21:49
DX: M25.551 Pain in right hip (principal); G89.29 Other chronic pain; I10 Essential (primary) hypertension; G43.909 Migraine, unspecified, not intractable, without status migrainosus; M19.90 Unspecified osteoarthritis, unspecified site; M79.7 Fibromyalgia; F17.210 Nicotine dependence, cigarettes, uncomplicated; Z90.711 Acquired absence of uterus with remaining cervical stump; Z86.73 Personal history of transient ischemic attack (TIA), and cerebral infarction without residual deficits; Z98.890 Other specified postprocedural states; Z91.040 Latex allergy status; Z88.0 Allergy status to penicillin; Z88.6 Allergy status to analgesic agent; Z88.7 Allergy status to serum and vaccine

== ENCOUNTER 2020-01-16 19:14 | Emergency (ER) | payer OTHER, MEDICAID ==
[~2020-01-16] VITALS: Ht 154.9 cm; Wt 81.7 kg
[~2020-01-16 19:14] MED LIST changes: +BACLOFEN 10MG T10 MG PO
[2020-01-16 20:31] VITALS: BP 175/95
== END 2020-01-16 20:32 | disposition home or self-care (01) ==
LOC: M.ERS 19:14
DX: S43.102A Unspecified dislocation of left acromioclavicular joint, initial encounter (principal); N80.9 Endometriosis, unspecified; G43.909 Migraine, unspecified, not intractable, without status migrainosus; M19.90 Unspecified osteoarthritis, unspecified site; M79.7 Fibromyalgia; I10 Essential (primary) hypertension; F17.210 Nicotine dependence, cigarettes, uncomplicated; Z90.710 Acquired absence of both cervix and uterus; Z86.73 Personal history of transient ischemic attack (TIA), and cerebral infarction without residual deficits; Z91.040 Latex allergy status; Z88.0 Allergy status to penicillin; Z88.5 Allergy status to narcotic agent; Z88.7 Allergy status to serum and vaccine; Z98.890 Other specified postprocedural states; Z88.6 Allergy status to analgesic agent; X58.XXXA Exposure to other specified factors, initial encounter; Y93.89 Activity, other specified; Y92.89 Other specified places as the place of occurrence of the external cause; Y99.8 Other external cause status

== ENCOUNTER 2020-10-26 10:40 | Emergency (ER) | payer OTHER, MEDICAID ==
[~2020-10-26] VITALS: Ht 154.9 cm; Wt 86.2 kg
[2020-10-26] MEDS ORDERED: CRUTCHES MISCELL (13:02)
[2020-10-26 13:09] VITALS: BP 211/137
== END 2020-10-26 13:10 | disposition home or self-care (01) ==
LOC: M.ERS 10:40
DX: S80.02XA Contusion of left knee, initial encounter (principal); N80.9 Endometriosis, unspecified; G43.909 Migraine, unspecified, not intractable, without status migrainosus; M19.90 Unspecified osteoarthritis, unspecified site; M79.7 Fibromyalgia; I10 Essential (primary) hypertension; Z91.040 Latex allergy status; Z88.5 Allergy status to narcotic agent; Z88.0 Allergy status to penicillin; Z88.6 Allergy status to analgesic agent; Z88.7 Allergy status to serum and vaccine; Z98.890 Other specified postprocedural states; Z90.711 Acquired absence of uterus with remaining cervical stump; Z86.73 Personal history of transient ischemic attack (TIA), and cerebral infarction without residual deficits; W10.8XXA Fall (on) (from) other stairs and steps, initial encounter; Y93.89 Activity, other specified; Y92.89 Other specified places as the place of occurrence of the external cause; Y99.8 Other external cause status

== ENCOUNTER 2021-04-13 20:09 | Emergency (ER) | payer OTHER, MEDICAID ==
[~2021-04-13] VITALS: Ht 154.9 cm; Wt 81.7 kg
[~2021-04-13 20:09] MED LIST changes: +CRUTCHES MISCELL
[2021-04-13 21:33] VITALS: BP 213/135
== END 2021-04-13 21:33 | disposition home or self-care (01) ==
LOC: M.ERS 20:09
DX: S60.221A Contusion of right hand, initial encounter (principal); I10 Essential (primary) hypertension; G43.909 Migraine, unspecified, not intractable, without status migrainosus; M19.90 Unspecified osteoarthritis, unspecified site; M79.7 Fibromyalgia; F17.210 Nicotine dependence, cigarettes, uncomplicated; Z98.890 Other specified postprocedural states; Z90.711 Acquired absence of uterus with remaining cervical stump; Z86.73 Personal history of transient ischemic attack (TIA), and cerebral infarction without residual deficits; Z79.899 Other long term (current) drug therapy; Z79.82 Long term (current) use of aspirin; Z91.040 Latex allergy status; Z88.5 Allergy status to narcotic agent; Z88.0 Allergy status to penicillin; Z91.048 Other nonmedicinal substance allergy status; Z88.7 Allergy status to serum and vaccine; Z88.6 Allergy status to analgesic agent; W10.8XXA Fall (on) (from) other stairs and steps, initial encounter; Y93.89 Activity, other specified; Y92.89 Other specified places as the place of occurrence of the external cause; Y99.8 Other external cause status